=== PATIENT | male | born 1985 | race Caucasian/White ===

== ENCOUNTER 2018-02-23 09:08 | Inpatient (IN) | payer OTHER ==
[2018-02-23] MEDS ORDERED: NS 1,000 ML IV ONE (09:22)
--- NOTE | 2018-02-23 09:28 | EDPHY ---
H & P Time Seen by Provider: 02/23/18 09:21 HPI/ROS: HPI Lower abdominal pain. 32-year-old male by private vehicle with his mother. This patient reports that Thursday evening he developed a sharp cramping lower abdominal pain, central and more isolated to the left lower quadrant. He was seen at the [facility] yesterday. He was given magnesium citrate and told to return to the emergency department if his pain was not significantly relieved by a bowel movement. He took the magnesium citrate last night. He reports having diarrhea throughout the night. Denies any bloody or melenic stool. He reports this morning that his pain is still present. No fever. Denies any testicular pain. No hematuria. He has not had any nausea or vomiting. No previous abdominal surgical history. Last meal was breakfast earlier this morning at 7: 30 a.m.. ROS: Constitutional: No fever, no chills. No weakness. Eyes: No discharge. No changes in vision. ENT: No sore throat. No nasal congestion or rhinorrhea. Respiratory: No cough. No shortness of breath. Cardiac: No chest pain, no palpitations. Gastrointestinal: As above. Genitourinary: No hematuria. No dysuria or increased frequency with urination. No testicular pain. Musculoskeletal: No back pain. No neck pain. No myalgias or arthralgias. Skin: No rashes. Neurological: No headache. No focal weakness or altered sensation. Past medical history: No significant past medical history. No allergies to medications. He is not on any prescription medications. Social history: Nonsmoker. Here with his mother. Denies alcohol. Physical Exam: General Appearance: Alert, no distress. This patient is responding to questions appropriately and in full sentences. This patient appears well- hydrated and well-nourished. Eyes: Pupils equal and round no pallor or injection. No lid edema, erythema or injection. Respiratory: There are no retractions, lungs are clear to auscultation with good air movement bilaterally. Cardiovascular: Regular rate and rhythm. No murmur. Gastrointestinal: Abdomen is soft with moderate left lower abdominal tenderness on palpation, slightly worse in the mid abdomen in the left lower quadrant, no masses, bowel sounds present. No focal tenderness at McBurney's point. No Hernández sign. : Testicular exam unremarkable. Normal testicular lie, no masses, no swelling, erythema or edema. Normal circumcised penis. Neurological: Motor sensory function is grossly intact. Cranial nerves are normal. Gait is normal. Skin: Warm and dry, no rashes. Musculoskeletal: No CVA tenderness on palpation bilaterally. Extremities are symmetrical. All joints range without pain or impingement. Psychiatric: No agitation. No depression. Database: EKG: Imaging: CT scan of abdomen and pelvis with IV contrast: Significant for a diverticulitis versus colitis. There is significant inflammation involving about 8 cm of the descending colon. There is also a micro perforation mid descending colon. Results were discussed with staff radiologist Dr. Naldo Bingham. Please see his report for further details. Procedures: Emergency department course: Vital signs reviewed and are normal. IV was placed. He was started on IV normal saline with 1 L to be given over 1 hr. He is initially declining any pain medication. I discussed CT imaging to evaluate for appendicitis and possible diverticulitis. He consents. 11:40 a.m., patient re-evaluated. Comfortable at this time. Discussed results of CT imaging and diagnosis with the patient and his mother. Need for IV antibiotics and admission discussed. All of their questions were answered. They endorse management plan. Hospitalist paged. The patient will be started on IV ciprofloxacin and Flagyl in the emergency department. 11:45 a.m., spoke with on-call hospitalist. Case discussed in detail. Patient accepted for transfer and admission to the hospitalist service under Dr. Kunal Sherwood. 11:50 a.m., spoke with General surgery, Dr. Frausto. Case discussed in detail. They will consult on further management of this patient after arrival to the floor. 12:15 p.m., I filled out the appropriate transfer paperwork. The patient will be sent to the [facility] by private vehicle. His mother is driving. His remaining emergency department course under my care has been uneventful. He was transferred in stable condition. Differential Diagnosis: The differential diagnosis on this patient includes but is not limited to diverticulitis, colitis, appendicitis. Pyelonephritis/cystitis, nephrolithiasis , testicular torsion, epididymitis unlikely. This represents a partial list of diagnoses considered. These considerations are based on history, physical exam , past history, reassessment and diagnostic testing. Smoking Status: Never smoked Constitutional: Initial Vital Signs Temperature (C) 37.1 C 04/24/18 09:13 Heart Rate 93 02/23/18 09:13 Respiratory Rate 18 02/23/18 09:13 Blood Pressure 122/84 H 02/23/18 09:13 O2 Sat (%) 97 02/23/18 09:13 O2 Delivery Mode Room Air Allergies/Adverse Reactions: No Known Allergies Allergy (Unverified 02/23/18 09:16) Home Medications: Medication Instructions Recorded NK [No Known Home Meds] 02/23/18 Medical Decision Making - Diagnostics Imaging Results: Imaging Impressions Abdomen CT 02/23/18 09:23 Impression: 1. Acute nonspecific colitis involving the mid descending colon with significant pericolonic inflammatory fluid extending into the left paracolic gutter and a focal 1.3 cm microperforation along the medial wall. Differential diagnosis includes inflammatory bowel disease/ulcerative colitis, nonspecific inflammatory/infectious colitis, versus less likely neoplasm. Follow-up colonoscopy is recommended. 2. No CT evidence of appendicitis, drainable abscess or bowel obstruction. Findings and recommendations discussed with Emergency Department physician, Dashawn Gonzalez MD, at 1130 hour, 02/23/2018. Final report concurs with initial preliminary interpretation. - Data Points Laboratory Results: Laboratory Results 02/23/18 09:30 02/23/18 09:30 02/23/18 02/23/18 02/23/18 10:37 09:30 09:30 WBC 16.23 10^3/uL H 10^3/uL (3.80-9.50) RBC 5.26 10^6/uL 10^6/uL (4.40-6.38) Hgb 16.8 g/dL g/dL (13.7-17.5) POC Hgb 15.0 gm/dL gm/dL (13.7-17.5) Hct 47.3 % % (40.0-51.0) POC Hct 44 % % (40-51) MCV 89.9 fL fL (81.5-99.8) MCH 31.9 pg pg (27.9-34.1) MCHC 35.5 g/dL g/dL (32.4-36.7) RDW 11.9 % % (11.5-15.2) Plt Count 178 10^3/uL 10^3/uL (150-400) MPV 9.8 fL fL (8.7-11.7) Neut % (Auto) 80.4 % H % (39.3-74.2) Lymph % (Auto) 6.9 % L % (15.0-45.0) [place] % (Auto) 12.1 % % (4.5-13.0) Eos % (Auto) 0.1 % L % (0.6-7.6) Baso % (Auto) 0.2 % L % (0.3-1.7) Nucleat RBC Rel Count 0.0 % % (0.0-0.2) Absolute Neuts (auto) 13.04 10^3/uL H 10^3/uL (1.70-6.50) Absolute Lymphs (auto) 1.12 10^3/uL 10^3/uL (1.00-3.00) Absolute Monos (auto) 1.97 10^3/uL H 10^3/uL (0.30-0.80) Absolute Eos (auto) 0.02 10^3/uL L 10^3/uL (0.03-0.40) Absolute Basos (auto) 0.03 10^3/uL 10^3/uL (0.02-0.10) Absolute Nucleated RBC 0.00 10^3/uL 10^3/uL (0-0.01) Immature Gran % 0.3 % % (0.0-1.1) Immature Gran # 0.05 10^3/uL 10^3/uL (0.00-0.10) POC Sodium 140 mEq/L mEq/L (135-145) Sodium 138 mEq/L mEq/L (135-145) POC Potassium 4.0 mEq/L mEq/L (3.3-5.0) Potassium 4.0 mEq/L mEq/L (3.5-5.2) POC Chloride 102 mEq/L mEq/L (97-110) Chloride 98 mEq/L mEq/L (97-110) Carbon Dioxide 26 mEq/l mEq/l (22-31) Anion Gap 14 mEq/L mEq/L (8-16) POC BUN 5 mg/dL L mg/dL (7-23) BUN 7 mg/dL mg/dL (7-23) Creatinine 0.6 mg/dL L mg/dL (0.7-1.3) POC Creatinine 0.7 mg/dL mg/dL (0.7-1.3) Estimated GFR > 60 Glucose 100 mg/dL mg/dL (70-100) POC Glucose 91 mg/dL mg/dL (70-100) Calcium 9.4 mg/dL mg/dL (8.5-10.4) Urine Color Urine Appearance Urine pH Ur Specific [place] Urine Protein Urine Ketones Urine Blood Urine Nitrate Urine Bilirubin Urine Urobilinogen Ur Leukocyte Esterase Urine RBC Urine WBC Ur Epithelial Cells Urine Bacteria Urine Yeast Urine Glucose 02/23/18 09:25 WBC RBC Hgb POC Hgb Hct POC Hct MCV MCH MCHC RDW Plt Count MPV Neut % (Auto) Lymph % (Auto) [place] % (Auto) Eos % (Auto) Baso % (Auto) Nucleat RBC Rel Count Absolute Neuts (auto) Absolute Lymphs (auto) Absolute Monos (auto) Absolute Eos (auto) Absolute Basos (auto) Absolute Nucleated RBC Immature Gran % Immature Gran # POC Sodium Sodium POC Potassium Potassium POC Chloride Chloride Carbon Dioxide Anion Gap POC BUN BUN Creatinine POC Creatinine Estimated GFR Glucose POC Glucose Calcium Urine Color YELLOW Urine Appearance CLEAR Urine pH 6.0 (5.0-7.5) Ur Specific [place] <= 1.005 (1.002-1.030) Urine Protein NEGATIVE (NEGATIVE) Urine Ketones 2+ H (NEGATIVE) Urine Blood TRACE H (NEGATIVE) Urine Nitrate NEGATIVE (NEGATIVE) Urine Bilirubin NEGATIVE (NEGATIVE) Urine Urobilinogen 0.2 EU EU (0.2-1.0) Ur Leukocyte Esterase NEGATIVE (NEGATIVE) Urine RBC 1-3 /hpf /hpf (0-3) Urine WBC 0-1 /hpf /hpf (0-3) Ur Epithelial Cells TRACE /lpf /lpf (NONE-1+) Urine Bacteria TRACE /hpf H /hpf (NONE SEEN) Urine Yeast TRACE /hpf H /hpf (NONE SEEN) Urine Glucose NEGATIVE (NEGATIVE) Medications Given: Ciprofloxacin/Dextrose (Cipro 400 Mg (Premix)) 200 mls @ 200 mls/hr IV EDNOW ONE PRN Reason: Protocol Stop: 02/23/18 12:36 Last Admin: 02/23/18 11:44 Dose: 200 mls Metronidazole/Sodium Chloride (Flagyl 500 Mg (Premix)) 100 mls @ 100 mls/hr IV EDNOW ONE PRN Reason: Protocol Stop: 02/23/18 12:36 Last Admin: 02/23/18 11:53 Dose: 100 mls Discontinued Medications Sodium Chloride (Ns) 1,000 mls @ 0 mls/hr IV EDNOW ONE; Wide Open PRN Reason: Protocol Stop: 02/23/18 09:23 Last Admin: 02/23/18 09:38 Dose: 1,000 mls Point of Care Test Results: 02/23/18 10:37 POC Sodium 140 POC Potassium 4.0 POC Chloride 102 POC BUN 5 L POC Creatinine 0.7 POC Glucose 91 Departure - Departure Disposition: [facility] Inpatient Acute Clinical Impression: Lower abdominal pain, Colitis
[2018-02-23] MEDS ORDERED: IOPAMIDOL (ISOVUE-300) 100 ML BTL ONE (09:33)
[2018-02-23 09:38] LABS: PLATELET COUNT 178 10^3/uL (150-400)
[2018-02-23] MEDS ORDERED: CIPROFLOXACIN 400 MG/DEXTROSE 200 ML IV ONE (11:37)
[2018-02-23] MEDS ORDERED: ONDANSETRON 4 MG/2 ML VIAL IVP PRN (15:28)
[2018-02-23] MEDS ORDERED: ONDANSETRON DISINTEGRATING 4 MG TAB PO PRN (15:28)
[2018-02-23] MEDS ORDERED: ACETAMINOPHEN 325 MG TAB PO PRN (15:28)
[2018-02-23] MEDS ORDERED: HYDROmorphone HCL 0.5 MG/0.5 ML SYR IVP PRN (15:28)
[2018-02-23] MEDS ORDERED: HYDROmorphONE/DILAUDID 2 MG/ML INJ IVP PRN (16:00)
--- NOTE | 2018-02-23 16:05 | GHP ---
[f rep st] HISTORY AND PHYSICAL DATE OF ADMISSION: 02/23/2018 HISTORY OF PRESENT ILLNESS: The patient is a 32-year-old gentleman with no past medical history, pre sents with several days of left lower quadrant pain, began feeling it a couple of days ago. He has h ad some subjective fevers. No chills. Some nausea. No vomiting. He sought care a couple days ago a nd he was diagnosed with constipation, given mag citrate, so he has been having diarrhea since then. He has never had a colonoscopy. There is no family history of inflammatory bowel disease. He denies prior history of tenesmus or bloody diarrhea or other IBD type symptoms. He has no testicular pain. No hematuria. He last ate at 7:30 this morning. REVIEW OF SYSTEMS: Complete 10-point review of systems conducted and negative except as noted in the HPI. PAST MEDICAL HISTORY: None. SOCIAL HISTORY: No tobacco, no alcohol. 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 FAMILY HISTORY: Father has diverticular disease. Grandfather had colon cancer in his 50s. ALLERGIES: No known drug allergies. HOME MEDICATIONS: None. PHYSICAL EXAMINATION: VITAL SIGNS: Temp 37.1, T-max 37.7, blood pressure 122/84, pulse 93, now 109. Breathing 18 times a minute, 97% on room air. GENERAL: No acute distress. HEENT: Sclerae anicter ic. Oropharynx clear. Mucous membranes moist. NECK: Supple. No lymphadenopathy or JVD. LUNGS: Clear to auscultation bilaterally. HEART: S1, S2. He is not tachycardic when I listened to him. AB DOMEN: Soft. There is guarding in the left lower quadrant without rebound. Bowel sounds are presen t but hypoactive. There are no peritoneal signs. LOWER EXTREMITIES: Without edema or calf tenderne ss. SKIN: Without rash. NEUROLOGIC: Nonfocal. DIAGNOSTICS: UA is unremarkable. Sodium 138, potassium 4, chloride 98, bicarb 26, BUN 7, creatinine 0.6. White count 16 with a left shift, hematocrit 47, platelets are 178,000. Abdominal CT images reviewed and interpreted by me shows nonspecific colitis in the mid descending co filipe with significant pericolonic and inflammatory fluid extending to the left pericolic gutter, 1.3 c m microperforation along the medial wall. No evidence of appendicitis or bowel obstruction. I discussed the case Dr. Dashawn Gonzalez and Dr. Artis Murillo. ASSESSMENT AND PLAN: A 32-year-old gentleman with likely diverticulitis. 1. Question diverticulitis. The patient seems a bit young for this, but he does have a family histo ry of diverticular disease. He has no prior history suggesting inflammatory bowel disease. I have s tarted the patient on Cipro and Flagyl. He has no peritoneal signs. He will have a surgical consult . Clear liquid diet. 2. Pain. Will give some intravenous Dilaudid as needed. 3. Tachycardia. This is secondary to diverticulitis. Will volume resuscitate and follow. 4. Prophylaxis. Pharmacologic prophylaxis can be withheld, given his young age. DISPOSITION: Inpatient status. /[id number]/MODL
[2018-02-23] MEDS: NS 1,000 ML IV SCH ×3 (16:19→21:50)
--- NOTE | 2018-02-23 17:03 | PDMN ---
Medical Necessity Medical necessity: M150 diverticulitis , acute A-2 days vs M565 inflammatory bowel disease A-2 days: abd pain with sig. pericolonic inflammatory fluid and microperforation found on CT, surgical consult pend., IV abx, IV pain, IV fluids anticipate > 2 midnights
--- NOTE | 2018-02-23 18:50 | PDGENHP ---
History and Physical - Chief Complaint abdominal pain - History of Present Illness Otherwise healthy 32yo M who began having pain this past Thursday. Prior to Thursday , he was in his usual sate of health and felt well. thursday, he began to have some vague lower midline pelvic pain with radiation to the left which persisted until Thursday. Thursday, he was evaluate by urgent care who examined him and performed a plain film of his abdomen, all of which was reassuring. He states that since then, the pain has progressed and has now relocated to the LLQ. He describes the pain as sharp, colicky and radiating to the midline, currently a 3 /10 in intensity. He went back to urgent care today where he had a CT scan performed which showed LLQ colitis and a likely small surrounding microperforation, he was subsequently admitted here to the medical service. Other than the pain, he denies fevers or chills and when lying still feels almost normal. He did have some diarrhea yesterday which he states has since mostly resolved. He continues to pass flatus. He denies being nauseated and has not vomited. History Information - Allergies/Home Medication List Allergies/Adverse Reactions: No Known Allergies Allergy (Unverified 02/23/18 09:16) Home Medications: NK [No Known Home Meds] 02/23/18 [Last Taken Unknown] I have personally reviewed and updated: family history, medical history, social history, surgical history - Past Medical History no pertinent PMH - Surgical History Reports: no pertinent surgical hx - Family History Additional family history: grandfather with colon cancer in 50s, no other Hx of colon ca in [facility] family - Social History Smoking Status: Never smoked 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 Review of Systems Review of Systems: ROS: 10pt was reviewed & negative except for what was stated in HPI & below Physical Exam Physical Exam: Temp Pulse Resp BP Pulse Ox 37.6 C 104 H 18 111/76 95 02/23/18 17:58 02/23/18 17:58 02/23/18 17:58 02/23/18 17:58 02/23/18 17:58 Constitutional: no apparent distress, appears nourished, not in pain Eyes: PERRL, anicteric sclera, EOMI Ears, Nose, Mouth, Throat: moist mucous membranes, hearing normal, ears appear normal, no oral mucosal ulcers Cardiovascular: regular rate and rhythym, no murmur, rub, or gallop, No edema Respiratory: no respiratory distress, no rales or rhonchi, clear to auscultation Gastrointestinal: other (hypoactive bowel sounds, TTP in the LLQ, no rebound, no guarding, remainer of abdomen is soft. ) Genitourinary: no bladder fullness, no bladder tenderness Skin: warm, normal color, no rashes or abrasions, no fluctuance, no induration, No mottled Musculoskeletal: full muscle strength, no muscle tenderness, normal joint ROM, no joint effusions Psychiatric: interacting appropriately, not anxious, not encephalopathic, thought process linear Lymph, Heme, Immunologic: no cervical LAD, no supraclavicular LAD Lab Data & Imaging Review 02/23/18 09:30 02/23/18 09:30 WBC 16.23 10^3/uL (3.80-9.50) H 02/23/18 09:30 RBC 5.26 10^6/uL (4.40-6.38) 02/23/18 09:30 Hgb 16.8 g/dL (13.7-17.5) 02/23/18 09:30 POC Hgb 15.0 gm/dL (13.7-17.5) 02/23/18 10:37 Hct 47.3 % (40.0-51.0) 02/23/18 09:30 POC Hct 44 % (40-51) 02/23/18 10:37 MCV 89.9 fL (81.5-99.8) 02/23/18 09:30 MCH 31.9 pg (27.9-34.1) 02/23/18 09:30 MCHC 35.5 g/dL (32.4-36.7) 02/23/18 09:30 RDW 11.9 % (11.5-15.2) 02/23/18 09:30 Plt Count 178 10^3/uL (150-400) 02/23/18 09:30 MPV 9.8 fL (8.7-11.7) 02/23/18 09:30 Neut % (Auto) 80.4 % (39.3-74.2) H 02/23/18 09:30 Lymph % (Auto) 6.9 % (15.0-45.0) L 02/23/18 09:30 [place] % (Auto) 12.1 % (4.5-13.0) 02/23/18 09:30 Eos % (Auto) 0.1 % (0.6-7.6) L 02/23/18 09:30 Baso % (Auto) 0.2 % (0.3-1.7) L 02/23/18 09:30 Nucleat RBC Rel Count 0.0 % (0.0-0.2) 02/23/18 09:30 Absolute Neuts (auto) 13.04 10^3/uL (1.70-6.50) H 02/23/18 09:30 Absolute Lymphs (auto) 1.12 10^3/uL (1.00-3.00) 02/23/18 09:30 Absolute Monos (auto) 1.97 10^3/uL (0.30-0.80) H 02/23/18 09:30 Absolute Eos (auto) 0.02 10^3/uL (0.03-0.40) L 02/23/18 09:30 Absolute Basos (auto) 0.03 10^3/uL (0.02-0.10) 02/23/18 09:30 Absolute Nucleated RBC 0.00 10^3/uL (0-0.01) 02/23/18 09:30 Immature Gran % 0.3 % (0.0-1.1) 02/23/18 09:30 Immature Gran # 0.05 10^3/uL (0.00-0.10) 02/23/18 09:30 POC Sodium 140 mEq/L (135-145) 02/23/18 10:37 Sodium 138 mEq/L (135-145) 02/23/18 09:30 POC Potassium 4.0 mEq/L (3.3-5.0) 02/23/18 10:37 Potassium 4.0 mEq/L (3.5-5.2) 02/23/18 09:30 POC Chloride 102 mEq/L (97-110) 02/23/18 10:37 Chloride 98 mEq/L (97-110) 02/23/18 09:30 Carbon Dioxide 26 mEq/l (22-31) 02/23/18 09:30 Anion Gap 14 mEq/L (8-16) 02/23/18 09:30 POC BUN 5 mg/dL (7-23) L 02/23/18 10:37 BUN 7 mg/dL (7-23) 02/23/18 09:30 Creatinine 0.6 mg/dL (0.7-1.3) L 02/23/18 09:30 POC Creatinine 0.7 mg/dL (0.7-1.3) 02/23/18 10:37 Estimated GFR > 60 02/23/18 09:30 Glucose 100 mg/dL (70-100) 02/23/18 09:30 POC Glucose 91 mg/dL (70-100) 02/23/18 10:37 Calcium 9.4 mg/dL (8.5-10.4) 02/23/18 09:30 Urine Color YELLOW 02/23/18 09:25 Urine Appearance CLEAR 02/23/18 09:25 Urine pH 6.0 (5.0-7.5) 02/23/18 09:25 Ur Specific [place] <= 1.005 (1.002-1.030) 02/23/18 09:25 Urine Protein NEGATIVE (NEGATIVE) 02/23/18 09:25 Urine Ketones 2+ (NEGATIVE) H 02/23/18 09:25 Urine Blood TRACE (NEGATIVE) H 02/23/18 09:25 Urine Nitrate NEGATIVE (NEGATIVE) 02/23/18 09:25 Urine Bilirubin NEGATIVE (NEGATIVE) 02/23/18 09:25 Urine Urobilinogen 0.2 EU (0.2-1.0) 02/23/18 09:25 Ur Leukocyte Esterase NEGATIVE (NEGATIVE) 02/23/18 09:25 Urine RBC 1-3 /hpf (0-3) 02/23/18 09:25 Urine WBC 0-1 /hpf (0-3) 02/23/18 09:25 Ur Epithelial Cells TRACE /lpf (NONE-1+) 02/23/18 09:25 Urine Bacteria TRACE /hpf (NONE SEEN) H 02/23/18 09:25 Urine Yeast TRACE /hpf (NONE SEEN) H 02/23/18 09:25 Urine Glucose NEGATIVE (NEGATIVE) 02/23/18 09:25 Visualized and Interpreted imaging results: Yes Interpretation: CT: LLQ colitis, small adjacent microperf. Assessment & Plan Assessment: Colitis (Acute) Lower abdominal pain (Acute) Plan: 32yo M c colitis, small microperf - Examination at this time is reassuring, in addition CT doesnt show large uncontained fluid collection or large free air. I think that we should continue with IV antibiotics as they already appear to be helping. I do think there is a high likelihood he will improve without further surgical intervention. Will continue to follow, would cont to trend his WBC and cont very minimal PO intake. If he did need OR, I did discuss the possibility of an ostomy which he would like to avoid if at all possible. Discussed plan with Dr Sherwood.
[2018-02-23] MEDS: CIPROFLOXACIN 400 MG/DEXTROSE 200 ML IV SCH (21:49)
[2018-02-24] MEDS: NS 1,000 ML IV SCH ×3 (03:49→18:34)
[2018-02-24 05:34] LABS: PLATELET COUNT 129 10^3/uL (150-400)
[2018-02-24] MEDS: CIPROFLOXACIN 400 MG/DEXTROSE 200 ML IV SCH ×2 (08:09→21:09)
--- NOTE | 2018-02-24 10:11 | SOAPPROG ---
SOAP Progress Note Assessment/Plan: Assessment: 32 y/o M admitted yesterday with LLQ pain and microperforation on CT scan. S: Pain improving. Tolerating clears. Still having some diarrhea. O: Alert Afebrile RRR No increased WOB Abdomen: soft, nondistended, tender to palpation in LLQ. +BS Plan: Seen with Dr. Murillo. Continue clear liquid diet. Hopefully continue conservative management with IV abx and avoid surgery. Continue to follow. 02/24/18 10:09 Objective: Vital Signs Temp Pulse Resp BP Pulse Ox 36.9 C 85 16 93/66 L 99 02/24/18 08:05 02/24/18 08:05 02/24/18 08:05 02/24/18 08:05 02/24/18 08:05 Laboratory Results 02/24/18 05:03 02/24/18 05:03 02/23/18 02/24/18 02/25/18 05:59 05:59 05:59 Intake Total 4166 Balance 4166 ICD10 Worksheet Patient Problems: Problems Problem Status Onset Colitis Acute Lower abdominal pain Acute
--- NOTE | 2018-02-24 16:02 | HOSPPROG ---
Hospitalist Progress Note Assessment/Plan: Assessment: 32 yo M p/w acute abdominal pain 2/2 colitis c/b microperforation Plan: # Colitis w/ microperforation. Acute, unclear whether infectious vs. sentinel presentation of IBD, resulting in descending colon microperf 1.3cm on CT ( personally interpreted) w/ surrounding inflammation -tenderness on exam, but not surgical abdomen, cont ongoing surg abd assessments -cont bowel rest, on clears -cont supportive care w/ pain Rx -GI PCR neg -cont D#2 cipro/flagyl -cont IVF -ongoing monitoring of WBC Diet. Clears, IVF PPx. Mod risk, hold pharm given potential surg, SCDs Code. Full Dispo. ADD uncertain, ongoing abd pain, bowel rest, IV Rx/IVF, not clinically resolved Subjective: ongoing pain L flank, loose BMs q1h Objective: Vital Signs Temp Pulse Resp BP Pulse Ox 37.1 C 91 18 106/74 98 02/24/18 15:18 02/24/18 15:18 02/24/18 15:18 02/24/18 15:18 02/24/18 15:18 Microbiology 02/24/18 10:55 Gastrointestinal Tract Panel (PCR) - Final Stool No Organism Detected Laboratory Results 02/24/18 05:03 02/24/18 05:03 02/23/18 02/24/18 02/25/18 05:59 05:59 05:59 Intake Total 4166 Balance 4166 - Physical Exam Constitutional: no apparent distress, appears nourished, uncomfortable, No chronically ill appearing Cardiovascular: regular rate and rhythym, no murmur, rub, or gallop, No edema Respiratory: no respiratory distress, no rales or rhonchi, clear to auscultation Gastrointestinal: tenderness (L lateral w/ voluntary guarding), No normoactive bowel sounds (hypoactive bowel sounds), No rebound, No distension Skin: warm, No erythema Neurologic: AAOx3, No facial droop Psychiatric: interacting appropriately, not anxious, not encephalopathic, thought process linear ICD10 Worksheet Patient Problems: Problems Problem Status Onset Lower abdominal pain Acute Colitis Acute
[2018-02-25] MEDS: NS 1,000 ML IV SCH ×3 (03:43→13:41)
[2018-02-25 05:20] LABS: PLATELET COUNT 136 10^3/uL (150-400)
[2018-02-25] MEDS: CIPROFLOXACIN 400 MG/DEXTROSE 200 ML IV SCH ×2 (09:52→22:05)
--- NOTE | 2018-02-25 10:29 | SOAPPROG ---
SOAP Progress Note Assessment/Plan: Assessment: 32 y/o M admitted yesterday with LLQ pain and microperforation on CT scan. S: Pain improving. Tolerating clears. Still having some diarrhea. O: Alert Afebrile RRR No increased WOB Abdomen: soft, nondistended, tender to palpation in LLQ. +BS Plan: Seen with Dr. Murillo. Continue clear liquid diet. Hopefully continue conservative management with IV abx and avoid surgery. Continue to follow. 02/24/18 10:09 02/25/18 10:26 Pain improving. Afebrile. Abdomen soft, mildly tender in LLQ, +BS. Will continue clear liquid diet for now to allow microperf to heal. Continue to follow. Objective: Vital Signs Temp Pulse Resp BP Pulse Ox 36.8 C 75 16 116/76 98 02/25/18 07:20 02/25/18 07:20 02/25/18 07:20 02/25/18 07:20 02/25/18 07:20 Microbiology 02/24/18 10:55 Gastrointestinal Tract Panel (PCR) - Final Stool No Organism Detected Laboratory Results 02/25/18 04:57 02/25/18 04:57 02/24/18 02/25/18 02/26/18 05:59 05:59 05:59 Intake Total 4166 2869 Balance 4166 2867 ICD10 Worksheet Patient Problems: Problems Problem Status Onset Colitis Acute Lower abdominal pain Acute
--- NOTE | 2018-02-25 14:56 | ASMTCMCOM ---
CM Note CM Note Notes: Pt admitted for colitis w/ microperforation. Currently pt is on IV ABX. CM will follow for DC needs. Date Signed: 02/25/2018 02:56 PM Electronically Signed By:Hortencia Murray LCSW
[2018-02-25] MEDS ORDERED: oxyCODONE IR 5 MG TAB PO PRN (16:37)
--- NOTE | 2018-02-25 19:07 | HOSPPROG ---
Hospitalist Progress Note Assessment/Plan: * Colitis (infectious vs. UC) vs diverticulitis -empiric abx - cipro/flagyl - some improvement -d/w Dr Dobbs -colonoscopy in 3-4 weeks -sooner if he doesn't improve -positive family history for UC -GI PCR negative - but infection still possible * Microperforation -improving with conservative therapy -advance diet Subjective: Still with pain, somewhat better. Per mom, grandfather suffered from UC Objective: Vital Signs Temp Pulse Resp BP Pulse Ox 36.8 C 72 16 113/76 97 02/25/18 15:31 02/25/18 15:31 02/25/18 15:31 02/25/18 15:31 02/25/18 15:31 Microbiology 02/24/18 10:55 Gastrointestinal Tract Panel (PCR) - Final Stool No Organism Detected Laboratory Results 02/25/18 04:57 02/25/18 04:57 02/24/18 02/25/18 02/26/18 05:59 05:59 05:59 Intake Total 4166 2867 450 Balance [address] abd - 13 cm circumferential section looks like colitis - Physical Exam Constitutional: no apparent distress, appears nourished, not in pain Cardiovascular: regular rate and rhythym, no murmur, rub, or gallop Respiratory: no respiratory distress, no rales or rhonchi, clear to auscultation Skin: no rashes or abrasions, no fluctuance, no induration Musculoskeletal: full muscle strength, no muscle tenderness, normal joint ROM Neurologic: AAOx3, sensation intact bilaterally ICD10 Worksheet Patient Problems: Problems Problem Status Onset Colitis Acute Lower abdominal pain Acute
[2018-02-26 05:05] LABS: PLATELET COUNT 165 10^3/uL (150-400)
[2018-02-26 08:38] VITALS: BP 121/88
[2018-02-26] MEDS: CIPROFLOXACIN 400 MG/DEXTROSE 200 ML IV SCH (08:58)
--- NOTE | 2018-02-26 12:46 | ASMTCMCOM ---
CM Note CM Note Notes: Chart reviewed. 32 Year old male admitted for diverticulitis. Undergoing conservative management at present. No current needs identified at this time. CM to follow. Plan: likely home with no needs. Date Signed: 02/26/2018 12:45 PM Electronically Signed By:Fani Ramirez RN
--- NOTE | 2018-02-26 18:21 | GDS ---
[f rep st] DISCHARGE SUMMARY DISCHARGE DIAGNOSES: 1. Colitis versus diverticulitis. 2. Micro perforation. HISTORY: The patient is a 32-year-old male, who presented with abdominal pain. His CT scan showed a segment concerning for colitis, diverticulitis was also considered. He had an associated microperfo ration and Surgery saw him in consultation. Plan was to treat empirically with antibiotics including ciprofloxacin and Flagyl and he did not require surgery. We were able to advance his diet. His GI PCR panel was negative but an infectious colitis is still a possibility. He does not have any symptoms prior to this event to suggest a more chronic inflammatory bowel disease although he does h ave a family history of ulcerative colitis in his grandfather. I spoke with Dr. Dobbs of Gastroenter ology and plan is for followup colonoscopy in 3-4 weeks. The colonoscopy could be considered sooner if he fails to improve, although at the time of discharge he feels great with resolution of abdominal pain on antibiotic therapy. DISCHARGE MEDICATIONS: Please see computer record for full detailed list. New medications: 1. Ciprofloxacin 500 mg p.o. b.i.d. x7 days. 2. Metronidazole 500 mg p.o. t.i.d. x7 days. DISCHARGE INSTRUCTIONS: Follow up colonoscopy in 3-4 weeks. Sooner if return of symptoms. Please c all gastroenterology to schedule. The patient was referred to Dr. Dobbs as an outpatient. Greater than 30 minutes' time spent arranging this discharge. Patient seen and examined by me on day of discharge. /[id number]/MODL
== END 2018-02-26 14:34 | disposition home or self-care (01) | DRG 392 ==
LOC: CED 09:08 → CEDHOLD 11:48 → F1N 14:29
PROVIDERS: ADMIT Internal Medicine; ATTEND Internal Medicine
DX: K57.20 Diverticulitis of large intestine with perforation and abscess without bleeding (principal); K52.9 Noninfective gastroenteritis and colitis, unspecified; R00.0 Tachycardia, unspecified
CPT/HCPCS: 74177-PO; 80048-PO; 81003-PO; 81015-PO; 82947-QW; 85025-PO; 96365; J0744; J1170; Q9967